=== PATIENT | male | born 1990 | race Caucasian/White ===

== ENCOUNTER 2022-08-18 08:42 | Day surgery (SDC) | payer OTHER, SELFPAY ==
[2022-08-18 09:12] VITALS: BP 122/80; PULSE 54; RESP 16; TEMP 36.8; O2SAT 98; BMI 23.3
[2022-08-18] MEDS: Lactated Ringers 1,000 ML 15 ML IV ×2 (09:23→11:10)
--- NOTE | 2022-08-18 09:40 | PCM.HP.BLA ---
History and Physical Date of Admission: 08/18/22 Intake Vital Signs ? 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 Never smoker alcohol intake:? current alcohol intake frequency: holidays/special occasions only substance use type:? does not use HPI HPI HPI: Patient is a 32-year-old male here for left groin pain.? He says that it happens especially with lifting heavy items.? He says he does feel bulging in the left groin and when he pushes back and he feels gurgling and hears a gurgling in his abdomen. ROS General General: Yes weight change (Loss. ); No appetite, fatigue, colon cancer, breast cancer or weakness HEENT HEENT: No difficulty swallowing, eye injury, eye surgery, swollen glands or hoarseness Endo Endocrine: No thyroid disease, diabetes mellitus, thyroid cancer, Hair loss, heat intolerance or cold intolerance Skin Skin: No rash or changing moles Musc Musculoskeletal: Yes back problems; No arthritis, rheumatoid arthritis, gout or joint pain Cardio Cardiovascular: No murmur, pacemaker, heart disease, atrial fibrillation, high blood pressure, heart attack, heart stent, palpitations, shortness of breat with exertion or chest pain Psych Psychiatric: Yes anxiety; No depression or hearing voices Resp Respiratory: No shortness of breath, No sleep apnea, No cough, No COPD, No asthma, No emphysema and No wheezing Gastro Gastrointestinal: Yes abdominal pain, Yes nausea or vomiting, No diarrhea, No constipation, No blood in stool, No acid reflux, No hemorrhoids, No ulcers, No gallbladder problem and No black,tarry stools Pako Hematologic: No blood thinners, No blood disorders, No bleeding, No anemia and No blood clots Neuro Neurologic: No weakness Exam Const General: cooperative Orientation: alert and oriented x3 HENMT Head: normal to inspection Neck Neck: normal visual inspection and full ROM Chest Chest palpation & inspection: normal inspection of the chest Resp Effort & Inspection: normal respiratory effort Auscultation: clear to auscultation bilaterally Cardio Rate: regular rate Rhythm: regular rhythm GI Inspection: non-distended Palpation: soft, hernia indirect inguinal on the left and nontender Skin General: no rashes or lesions noted Neuro General: patient alert and patient oriented x3 Extrem General: full ROM Psych Appearance: grossly normal Mental Status: mental status grossly normal Assessment and Plan Assessment and Plan (1) Left inguinal hernia: ?Status:?Acute ?Plan: Patient has a left inguinal hernia.? I was able to reach my finger beside his spermatic cord into his inguinal ring and it appears the defect is approximately size my finger.? I recommended open repair as he has had traumatic splenectomy.? I discussed open left inguinal hernia repair with mesh.? I discussed the procedure as well as the risks of bleeding, infection, chronic groin pain, injury to underlying bowel, injury to blood supply to the testicle.? Patient understands all the risks and is willing to proceed with open repair.? Postoperative restrictions were discussed as well. Ant Gastelum MD Pager: [facility] [address] [place] [address], [address] [place] [address] Office: I have examined the patient and the H&P has been reviewed. There are no clinical changes since date of exam.
--- NOTE | 2022-08-18 10:20 | LIP_PTH ---
PATIENT: JAN LOPEZ JR LOC: [facility] [place][id number] AGE/SX: 32/M ROOM: RE08/18/[address]: Dr. Ant Gastelum MD : [id number] BED: DIS: 08/18/2022 SPEC #: [id number] RECD: 08/18/22 13:13 STATUS: NIKA REBeau #: [id number] JOSIE: 08/18/22 10:[address]: Ant Gastelum DEPT: SURGICAL PATHOLOGY RECD BY: Lidia Ho ENTERED: 08/18/22 13:31 SP TYPE: LIPOMA OT DR: No Primary Care Phys Tissues: Soft tissues, NOS Procedures: Surgery Specimen Level III HEADER OPERATION: Open inguinal hernia repair with mesh PRE-OP DIAGNOSIS: Left inguinal hernia TISSUE SUBMITTED: Cord lipoma MICROSCOPIC DIAGNOSIS Cord lipoma: Mature adipose tissue consistent with lipoma. CAMILO:booker 08/19/2022 MICROSCOPIC DESCRIPTION Slides are reviewed. GROSS DESCRIPTION Received in fixative is one container labeled with the patient's name and designated cord lipoma. The specimen consists of an irregular fragment of yellow fatty tissue measuring 3 x 3 x 1 cm. Serial sections reveal homogenous yellow cut surfaces. Bobbin Marker sections are submitted in one cassette. / AM:booker 08/18/2022 TC:1 CPT: 12254
[2022-08-18] MEDS: Cefazolin 2 GM in 0.9% Normal Saline 100 ML IV (10:25)
[2022-08-18] MEDS: Bupiv/Epi 0.5% Mpf 30 ML Vial (11:01)
[2022-08-18 11:20] VITALS: BP 120/74; BP 122/80; PULSE 104; RESP 16; TEMP 36.8; O2SAT 98
--- NOTE | 2022-08-18 11:25 | OP.PCM_ITS ---
Report of Operation Date of Procedure: 08/18/22 Pre-Operative Diagnosis: Left inguinal hernia Post-Operative Diagnosis: Indirect left inguinal hernia Surgery/Procedure Performed:: Left inguinal hernia repair with mesh Specimen's removed: Cord lipoma Description of Procedure: Patient was brought back the operating room and general anesthesia was induced. The left groin was prepped and draped in usual sterile fashion. An incision was marked in the left groin and then injected with local anesthetic. Incision was made and deepened to subcutaneous tissue. Superficial vein was ligated using 3- 0 silk. Next the external aponeurosis was nicked with a scalpel and elevated and is scissors were used to open the inguinal canal to the external opening. The ilioinguinal nerve was identified and spared. The spermatic cord was surrounded with a Concrete drain and elevated. The spermatic cord was inspected there was a hernia sac and a small cord lipoma. Cord lipoma was removed. Hernia sac was opened and inspected and appeared to be a sliding hernia containing colon. The hernia sac was reduced Next a Bard keyhole mesh was tacked to the pubic tubercle using 2-0 PDS suture. Using interrupted 2-0 PDS sutures the mesh was tacked to the shelving portion of the inguinal ligament laterally. Immediately was tacked to the conjoined tendon using interrupted 2-0 PDS sutures. The tails were wrapped around the cord and sutured to themselves using a 2-0 PDS suture allowing for enough room for the tip of the pinky finger to be inserted adjacent to the spermatic cord. The tails were tucked under the external aponeurosis and the inguinal canal was irrigated and suctioned dry. The external aponeurosis was reapproximated from lateral to medial using a running 3-0 Vicryl suture. The Christiano's fascia was then closed using interrupted 3-0 Vicryl suture. Skin was closed using a running 4-0 Monocryl suture and Dermabond was applied. Scrotum was checked at the end the case contain both testicles patient was awoken and taken to PACU in stable condition. Grafts/Implants Used: Bard keyhole mesh Admit VTE Documentation VTE Mechan Device Prophylaxis: SCD's
[2022-08-18 11:30] VITALS: BP 122/80; BP 129/81; PULSE 89; RESP 16; O2SAT 97
--- NOTE | 2022-08-18 11:33 | DCINST_ITS ---
Discharge Instructions Procedure Hernia Diet Discharge Diet: Light diet - advance as tolerated Activity Discharge Activity: May Not Drive (for 2-3 days or while taking narcotic pain meds.) and May Shower (Tomorrow) Lifting Restrictions: 20 pounds for 6 weeks. Additional Activity Instructions:: Climbing stairs is fine, walking is encouraged. Sitting in bed may be uncomfortable. Sitting up using your lateral muscles (sitting up sideways) is usually more comfortable. Do not drive, work heavy equipment of sign legal documents for 24 hours. If your hernia repair was an inguinal repair, you may have scrotal swelling, an ice pack and/or athletic support can provide more comfort. Pain medications may cause nausea, you should typically eat light foods as you take your pain medications. Pain medications may also cause constipation. If you have difficulty with this, discuss with your doctor. Dressing / Incision Call your doctor if your incision/area has: Continuous Slow Oozing, Sudden Increased Bleeding, Increased Pain/ Swelling, Increased Redness and Foul Smelling Discharge Call your doctor if you observe: Fever of 101 or Higher Suture Line Care: Avoid Pulling/Pushing and Avoid Pinching/Bending Cleanse incision/area with: Soap & Water Follow Up Care Please Follow Up With: Ant Gastelum MD When: Please call to schedule 2 week follow up appointment. [phone] Test Results: Test results from this visit will be discussed in further detail at your follow- up appointment, if applicable. Discharge Plan Admission Attending Provider: Ant Gastelum Primary Care Provider: Care Physician,Maame Primary Discharge Orders/Prescriptions Prescriptions: New oxycodone 5 mg tablet 5 - 10 mg PO Q6H PRN (Reason: pain) 5 Days Qty: 20 0RF No Action acetaminophen [Tylenol] 325 mg capsule 325 mg PO Q4H PRN (Reason: Pain) naproxen sodium [Aleve] 220 mg capsule 220 mg PO Q8H PRN (Reason: Pain) ibuprofen 200 mg tablet 200 mg PO Q6H PRN (Reason: Pain) Referrals / Follow Up: Care Physician,Maame Primary [Primary Care Provider] - Disposition Disposition (needs filled in before D/C Order can be placed): Home, Self Care
[2022-08-18 11:45] VITALS: BP 122/80; BP 129/91; PULSE 84; RESP 16; O2SAT 99
[2022-08-18 12:00] VITALS: BP 122/80; BP 129/86; PULSE 62; RESP 16; TEMP 36.3; O2SAT 99
[2022-08-18] MEDS: oxyCODONE 5 MG Tablet PO (12:35)
[2022-08-18 12:57] VITALS: BP 114/70; BP 122/80; PULSE 70; RESP 16; O2SAT 97
== END 2022-08-18 13:20 | disposition home or self-care (01) ==
LOC: SDC 08:50 → AC 08:51
PROVIDERS: Referring Provider Surgery; Visit Provider Surgery
PROC: (CPT 49525; principal; 2022-08-18 10:05)
DX: K40.90 Unilateral inguinal hernia, without obstruction or gangrene, not specified as recurrent (principal); D17.6 Benign lipomatous neoplasm of spermatic cord
CPT/HCPCS: 49525; 54840; 00830; 88304; J7120; C1781; J2405